=== PATIENT | male | born 1985 | race Two or more races ===

== ENCOUNTER 2021-01-02 12:29 | Emergency (ER) | payer MEDICAID ==
[~2021-01-02] VITALS: Ht 172.7 cm; Wt 81.6 kg
--- NOTE | 2021-01-02 13:02 | NUR ---
fever, body aches, loss of smell and taste x 1 week, no covid vaccine. PT AAOX4, VSS RR EVEN & UNLABORED. DENIES CP, SOB, DIZZINESS, N/V AT THIS TIME. AWAITING EVAL BY [facility]. WILL CONT TO MONITOR.
[2021-01-02] MEDS ORDERED: ACETAMINOPHEN ES 500 MG TABLET ONE (13:19)
[2021-01-02] MEDS ORDERED: DEXAMETHASONE 4 MG TABLET ONE (13:19)
[2021-01-02] MEDS ORDERED: DEXAMETHASONE 1 MG TABLET ONE (13:19)
[2021-01-02] MEDS ORDERED: DEXA6TAB PO (13:24)
[2021-01-02] MEDS ORDERED: AZIT250T PO (13:24)
[2021-01-02] MEDS ORDERED: IVER3TAB2 PO (13:24)
[2021-01-02] MEDS ORDERED: ALBU8.5H8 INH (13:37)
[2021-01-02] MEDS: DEXAMETHASONE 1 MG TABLET PO ONE (13:41)
[2021-01-02] MEDS: ACETAMINOPHEN ES 500 MG TABLET PO ONE (13:41)
--- NOTE | 2021-01-02 13:42 | NUR ---
MEDICATED PER ERMD ORDER, PT GUANAKO WELL.
--- NOTE | 2021-01-02 13:58 | NUR ---
COVID & FLU SWAB DONE & SENT TO LAB.
[2021-01-02 14:59] VITALS: BP 118/74
--- NOTE | 2021-01-02 14:59 | NUR ---
Patient discharged to home in stable condition. Written and verbal after care instructions given. Patient verbalizes understanding of instruction.
--- NOTE | 2021-01-05 12:34 | NUR ---
called number in patient's contact list no answer. left a message regarding patients covid test.
== END 2021-01-02 15:00 | disposition home or self-care (01) ==
LOC: ER 12:37
DX: U07.1 COVID-19 (principal); R43.8 Other disturbances of smell and taste
CPT/HCPCS: 87426; 87804; 99283; C9803; J8540 ×2; U0003